=== PATIENT | male | born 1950 | race Caucasian/White ===

== ENCOUNTER → 2018-01-30 14:01 | Outpatient (CLI) | payer MEDICARE, SELFPAY ==
[2018-01-30 14:49] LABS: Add Manual Diff / Slide Review NO; Basophils Percent Auto 1.1 % (0-2); Hematocrit 45.6 % (41-53); Hemoglobin 15.7 g/dL (13.5-17.5); Lymphocytes Percent Auto 26.3 % (25-40); Mean Corpuscular HGB Conc 34.5 % (30-36); Mean Corpuscular Volume 92.7 fL (80-100); Monocytes Percent Auto 6.8 % (3-14); Neutrophils Absolute Auto 5100 /uL (3000-5900); Neutrophils Percent Auto 63.8 % (50-75); Platelet Count 223 X10^3/uL (150-400); Red Blood Cell Count 4.92 X10^6/uL (4.5-5.9); Red Cell Distribution Width 14.9 % (11.6-14.8); White Blood Cell Count 7.9 X10^3/uL (4.5-11.0)
[2018-01-30 15:21] LABS: Alanine Aminotransferase 31 IU/L (21-72); Albumin 4.2 g/dL (3.5-5.0); Albumin Globulin Ratio 1.2 (1.0-2.8); Alkaline Phosphatase 95 U/L (38-126); Aspartate Aminotransferase 30 IU/L (17-59); BUN Creatinine Ratio 17.1 (6-22); Bilirubin Total 0.8 mg/dL (0.2-1.3); Blood Urea Nitrogen 12 mg/dL (9-20); Carbon Dioxide 25 mmol/L (22-32); Chloride 102 mmol/L (98-107); Cholesterol 123 mg/dL (140-199); Estimated Glomerular Filt Rate > 60.0 mL/min (>60); Globulin 3.4 g/dL (1.7-4.1); Glucose 97 mg/dL (80-110); HDL Cholesterol 36 mg/dL (40-60); HEMOLYSIS < 15 (0-50); LDL Cholesterol Calculated 69 mg/dL (<100); Potassium 4.3 mmol/L (3.4-5.1); Sodium 138 mmol/L (137-145); Total Protein 7.6 g/dL (6.3-8.2); Triglycerides 88 mg/dL (35-150)
[2018-01-30 15:51] LABS: Prostate Specific Antigen Scrn 0.846 ng/mL (0.1-4.0)
[2018-01-30 15:52] LABS: TSH w/ Reflex to FT4 1.07 uIU/mL (0.47-4.68)
== END ==
PROVIDERS: PCP Family Medicine; Visit Provider Family Medicine
DX: I10 Essential (primary) hypertension (principal); E78.2 Mixed hyperlipidemia
CPT/HCPCS: 36415; 80053; 80061; 84443; 85025; G0103

== ENCOUNTER 2019-10-22 20:55 | Emergency (ER) | payer MEDICARE, SELFPAY ==
[2019-10-22 20:56] VITALS: BP 211/99; PULSE 76; RESP 20; TEMP 36.6; O2SAT 98
--- NOTE | 2019-10-22 20:57 | DI.CT.S_ITS ---
PROCEDURE: CT HEAD/BRAIN WO CON INDICATIONS: severe headache with balance issues today TECHNIQUE: Noncontrast 4.5 mm thick angled axial sections acquired from the foramen magnum to the vertex, with coronal and sagittal reformats. For radiation dose reduction, the following was used: automated exposure control, adjustment of mA and/or kV according to patient size. COMPARISON: [facility], CT, HEAD WITHOUT CONTRAST, 05/18/2013, 21:47. FINDINGS: Image quality: Excellent. CSF spaces: Basal cisterns are patent. No extra-axial fluid collections. The ventricles are symmetric in size and shape. Brain: No intracranial bleeds or masses. There is cerebral volume loss for age, with resultant ventricular and sulcal prominence. There are periventricular and deep white matter chronic small vessel ischemic changes. There is intracranial internal carotid artery atherosclerosis. Skull and face: Calvarium and visualized facial bones appear intact, without suspicious lesions. Sinuses: Visualized sinuses and mastoids are clear. IMPRESSION: 1. No acute intracranial process. 2. Moderate atrophy and chronic microvascular ischemic changes. Dictated by: Lillie Beckwith M.D. on 10/22/2019 at 21:43 Approved by: Lillie Beckwith M.D. on 10/22/2019 at 21:45
--- NOTE | 2019-10-22 21:32 | ED.HA ---
HPI - Headache General Chief Complaint: Headache Stated Complaint: Headache all day Time Seen by Provider: 10/22/19 20:56 Source: patient Mode of arrival: Ambulatory Limitations: no limitations History of Present Illness HPI Narrative: 69-year-old male daily smoker with history of hypertension presents with a headache over the course of the day in the absence of other symptoms. He denies any blurred vision, trouble with speech or focal neurologic findings. He denies any falls or injuries. He denies fever, chills or neck pain. He denies any chest pain, shortness of breath nor abdominal pain, nausea or vomiting. He does state that he has felt a bit odd ever since he stopped taking his blood pressure medications about 1 month ago. He denies any recent travel nor dietary change. He denies any obvious provocation or palliation of his headache and states it is generalized in nature and was gradual in its onset MD Complaint: headache Onset (ago): hour(s) Onset description: gradual Location: diffuse Severity: moderate Quality: aching Relieving factors: nothing Exacerbating factors: none Associated symptoms: none Related Data Home Medications Medication Instructions Recorded Confirmed aspirin 325 mg PO QDAY #0 12/31/12 02/12/18 Previous Rx's Medication Instructions Recorded albuterol sulfate 90 mcg/actuation 2 puff INHALATION Q6H PRN #8 gram 02/12/18 aerosol inhaler atorvastatin 40 mg tablet 40 mg PO HS #90 tab 01/14/19 citalopram 20 mg tablet 20 mg PO DAILY #30 tab 04/18/19 lisinopril 10 mg PO DAILY #30 tab 10/23/19 metoprolol succinate [Toprol XL] 25 mg PO QDAY #30 tab 10/23/19 Allergies Allergy/AdvReac Type Severity Reaction Status Date / Time No Known Allergies Allergy Uncoded 02/12/18 15:05 Review of Systems Constitutional Constitutional: Denies chills, Denies fatigue, Denies fever(s), Denies frequent falls, Reports headache(s), Denies lethargy and Denies weakness Eyes Eyes: Denies change in vision, Denies eye discharge, Denies irritation and Denies loss of vision ENT Ears, Nose, Mouth, and Throat: Denies change in voice, Denies dizziness, Reports headache(s), Denies neck pain, Denies sore throat and Denies throat swelling Cardiovascular Cardiovascular: Denies chest pain, Denies irregular heart rhythm, Denies lightheadedness, Denies palpitations, Denies dyspnea, Denies dyspnea on exertion and Denies orthopnea Respiratory Respiratory: Denies cough, Denies dyspnea, Denies dyspnea on exertion and Denies wheezing Gastrointestinal Gastrointestinal: Denies abdominal pain, Denies change in bowel habits, Denies diarrhea, Denies nausea and Denies vomiting Genitourinary Genitourinary: Denies hematuria, Denies flank pain, Denies urinary incontinence and Denies urinary urgency Musculoskeletal Musculoskeletal: Denies back pain, Denies muscle weakness, Denies neck pain, Denies numbness and Denies tingling Integumentary/Breasts Skin/Breast: Denies pruritus, Denies erythema, Denies rash and Denies wounds Neurologic Neurologic: Denies behavioral changes, Denies confusion, Denies dizziness, Denies frequent falls, Reports headache(s), Denies loss of vision, Denies numbness, Denies tingling and Denies weakness Psychiatric Psychiatric: Denies anxiety, Denies behavioral changes, Denies confusion, Denies depression, Denies homicidal ideation and Denies suicidal ideation Endocrine Endocrine: Denies fatigue, Denies flushing and Denies palpitations Hematologic/Lymphatic Hematologic/Lymphatic: Denies easy bruising Allergic/Immunologic Allergic/Immunologic: Denies urticaria, Denies throat swelling and Denies wheezing Patient History Medical History Abdominal aortic aneurysm (AAA) (Chronic 09/14/14) Chronic obstructive pulmonary disease (Chronic) Current smoker (Chronic) Depression (Chronic 04/22/14) Essential hypertension (Chronic) Hyperlipidemia (Chronic) Hypertension (Chronic) Mixed hyperlipidemia (Chronic) Pulmonary emphysema (Chronic 09/23/14) Surgical History Abdominal aortic aneurysm (Resolved ~01/16/17) H/O abdominal aortic aneurysm repair (Chronic) Status post appendectomy Status post arthroscopy Social History marital status: Smoking Status: Current every day smoker alcohol intake: current (ON OCCASION ) substance use type: does not use Smoking Status: Current every day smoker alcohol intake frequency: holidays/special occasions only Substance Use Type: does not use Exam Narrative Exam Narrative: GENERAL: [] year old patient appears stated age. Well-nourished, well-developed patient, in mild distress. HEAD: Atraumatic. Normocephalic. EYES: Pupils equal round and reactive. Extraocular motions intact. No scleral icterus. No injection or drainage. ENT: Nose without bleeding, purulent drainage. Throat without erythema, tonsillar hypertrophy or exudate. Airway patent. NECK: Trachea midline. Non tender CARDIOVASCULAR: Regular rate and rhythm without murmurs, gallops, or rubs. RESPIRATORY: Clear to auscultation. Breath sounds equal bilaterally. No wheezes, rales, or rhonchi. GASTROINTESTINAL: Abdomen soft, non-tender, nondistended. EXTREMITIES: No edema or joint tenderness. BACK: Nontender without deformity or crepitance. No flank tenderness. NEURO: AOx3. SKIN: No rash or erythema of visible areas NIH Stroke Scale 1a. LOC: Patient is alert and keenly responsive (0) 1b. LOC Questions: Patient answers both LOC questions accurately (0) 1c. LOC Commands: Patient performs both tasks correctly (0) 2. Best Gaze: Normal (0) 3. Visual: No visual loss (0) 4. Facial palsy: Normal symmetrical movements (0) 5. Motor arm: No drift (0) 6. Motor leg: No drift (0) 7. Limb ataxia: Absent (0) 8. Sensory: Normal (0) 9. Best language: No aphasia; normal (0) 10. Dysarthria: Normal (0) 11. Extinction and inattention: No abnormality (0) NIHSS: 0 Initial Vital Signs Initial Vital Signs: Vital Signs Temperature 98 F 10/22/19 20:56 Pulse Rate 76 10/22/19 20:56 Respiratory Rate 20 10/22/19 20:56 Blood Pressure 211/99 H 10/22/19 20:56 Pulse Oximetry 98 10/22/19 20:56 Course Course Course Narrative: Patient starts feeling a bit better after the Toradol. Patient feels significant relief after blood pressure reduction due to labetalol. Patient has headache over the course of the day with a normal head CT a very reassuring neurologic exam. Stroke considered but thought much less likely given reassuring physical exam and CT findings. Meningitis considered but thought less likely given lack of meningeal findings or suspicion of infection. Return precautions given and questions answered to the apparent satisfaction of patient Orders Ordered: ED Orders 10/22/19 20:57 CT head/brain wo con Stat 10/22/19 21:20 Basic Metabolic Panel Stat Complete Blood Count AUTO DIFF Stat Partial Thromboplastin Time Stat Prothrombin Time INR Stat Discontinued Medications Sodium Chloride (Normal Saline 0.9%) 500 mls @ 1,000 mls/hr IV BOLUS ONE Stop: 10/23/19 00:16 Last Admin: 10/23/19 00:08 Dose: Not Given Documented by: ELISABETH Sodium Chloride (Normal Saline 0.9%) 1,000 mls @ 1,000 mls/hr IV BOLUS ONE Stop: 10/23/19 01:00 Last Infusion: 10/23/19 00:46 Dose: 0 mls/hr Documented by: Admin: 10/23/19 00:04 Dose: 1,000 mls/hr Documented by: ELISABETH Ketorolac Tromethamine (Toradol) 15 mg IV NOW ONE Stop: 10/22/19 22:17 Last Admin: 10/22/19 22:47 Dose: 15 mg Documented by: HÉCTOR Labetalol HCl (Trandate) 10 mg IV NOW ONE Stop: 10/22/19 23:12 Last Admin: 10/22/19 23:16 Dose: 10 mg Documented by: ELISABETH Metoprolol Tartrate (Lopressor) 25 mg PO NOW ONE Stop: 10/22/19 23:48 Last Admin: 10/23/19 00:18 Dose: 25 mg Documented by: SANTOS Vital Signs Vital signs: Vital Signs - 8 hr 10/22/19 20:56 10/22/19 23:11 10/22/19 23:38 Temperature 98 F Pulse Rate 76 72 70 Respiratory Rate 20 18 20 Blood Pressure 211/99 H Blood Pressure [Right Arm] 209/96 H 184/99 H Pulse Oximetry 98 98 10/23/19 01:22 Temperature Pulse Rate 72 Respiratory Rate 18 Blood Pressure 150/70 H Blood Pressure [Right Arm] Pulse Oximetry 98 MDM - Headache Lab Data Result diagrams: 10/22/19 21:20 10/22/19 21:20 Labs: Lab Results 10/22/19 10/22/19 10/22/19 Range/Units 21:20 21:20 21:20 WBC 8.3 (4.5-11.0) X10^3/uL RBC 4.97 (4.5-5.9) X10^6/uL Hgb 15.7 (13.5-17.5) g/dL Hct 45.5 (41-53) % MCV 91.6 (80-100) fL MCH 31.5 (26-34) PG MCHC 34.4 (30-36) % RDW 14.5 (11.6-14.8) % Plt Count 241 (150-400) X10^3/uL Neut % (Auto) 60.6 (50-75) % Lymph % (Auto) 27.6 (25-40) % Woodward % (Auto) 8.2 (3-14) % Eos % (Auto) 3.4 (2-4) % Baso % (Auto) 0.2 (0-2) % Neut # (Auto) 5000 (4096-5394) /uL Lymph # (Auto) 2300 (7561-4609) /uL Woodward # (Auto) 700 (0-900) /uL Eos # (Auto) 300 (0-450) /uL Baso # (Auto) 0 (0-100) /uL PT 11.9 (10.1-12.7) SECONDS INR 1.0 (0.9-1.3) APTT 30 (26.4-36.2) SECONDS Sodium 141 (137-145) mmol/L Potassium 3.6 (3.4-5.1) mmol/L Chloride 102 (98-107) mmol/L Carbon Dioxide 31 (22-32) mmol/L BUN 11 (9-20) mg/dL Creatinine 0.80 (0.66-1.25) mg/dL Estimated GFR > 60.0 (>60) mL/min BUN/Creatinine Ratio 13.8 (6-22) Glucose 96 (80-110) mg/dL Calcium 9.2 (8.4-10.2) mg/dL Discharge Plan Departure Patient Disposition: Home Clinical Impression: Essential hypertension Headache Qualifiers: Headache type: unspecified Headache chronicity pattern: acute headache Intractability: not intractable Qualified Code(s): R51 - Headache Discharge Date/Time: 10/23/19 01:23 Instructions: DI for Headache Activity Restrictions/Additional Instructions: *You have been diagnosed with [hypertension and headache] *What to do: *Take medications as directed: Blood Pressure medications sent to [facility] *Follow up with your primary care provider in 2-3 days, call for an appointment. Let them know you were seen in the Emergency Department and that we ask that you be seen in follow up *Return to ER if you should have any new, worsening or concerning symptoms Prescriptions: Continued lisinopril 10 mg tablet 10 mg PO DAILY Qty: 30 RF: 0 metoprolol succinate [Toprol XL] 25 mg tablet extended release 24 hr 25 mg PO QDAY Qty: 30 RF: 0 No Action aspirin 325 MG tablet 325 mg PO QDAY Qty: 0 RF: 0 atorvastatin [Lipitor] 40 mg tablet 40 mg PO HS Qty: 90 RF: 0 citalopram 20 mg tablet 20 mg PO DAILY Qty: 30 RF: 0 albuterol sulfate 90 mcg/actuation HFA aerosol inhaler 2 puff INHALATION Q6H PRN (Reason: shortness of breath) Qty: 8 RF: 0 Referrals: Tobi Lora MD [Primary Care Provider] -
[2019-10-22 21:43] LABS: Add Manual Diff / Slide Review NO; Basophils Absolute Auto 0 /uL (0-100); Basophils Percent Auto 0.2 % (0-2); Eosinophils Absolute Auto 300 /uL (0-450); Eosinophils Percent Auto 3.4 % (2-4); Hematocrit 45.5 % (41-53); Hemoglobin 15.7 g/dL (13.5-17.5); Lymphocytes Absolute Auto 2300 /uL (1100-4500); Lymphocytes Percent Auto 27.6 % (25-40); Mean Corpuscular HGB Conc 34.4 % (30-36); Mean Corpuscular Hemoglobin 31.5 PG (26-34); Mean Corpuscular Volume 91.6 fL (80-100); Monocytes Absolute Auto 700 /uL (0-900); Monocytes Percent Auto 8.2 % (3-14); Neutrophils Absolute Auto 5000 /uL (1500-7000); Neutrophils Percent Auto 60.6 % (50-75); Platelet Count 241 X10^3/uL (150-400); Red Blood Cell Count 4.97 X10^6/uL (4.5-5.9); Red Cell Distribution Width 14.5 % (11.6-14.8); White Blood Cell Count 8.3 X10^3/uL (4.5-11.0)
[2019-10-22 21:49] LABS: Prothrombin Time 11.9 SECONDS (10.1-12.7)
[2019-10-22 21:51] LABS: BUN Creatinine Ratio 13.8 (6-22); Blood Urea Nitrogen 11 mg/dL (9-20); Calcium 9.2 mg/dL (8.4-10.2); Carbon Dioxide 31 mmol/L (22-32); Chloride 102 mmol/L (98-107); Estimated Glomerular Filt Rate > 60.0 mL/min (>60); Glucose 96 mg/dL (80-110); HEMOLYSIS 24 (0-50); Potassium 3.6 mmol/L (3.4-5.1); Sodium 141 mmol/L (137-145)
[2019-10-22 21:52] LABS: PTT Partial Thromboplastin Tim 30 SECONDS (26.4-36.2)
[2019-10-22] MEDS: KETOROLAC 60 MG/2 ML VIAL 15 MG IV (22:47)
[2019-10-22 23:11] VITALS: BP 209/96; PULSE 72; RESP 18; O2SAT 98
[2019-10-22] MEDS: LABETALOL 20 MG/4 ML SYRINGE 10 MG IV (23:16)
[2019-10-22 23:38] VITALS: BP 184/99; PULSE 70; RESP 20
[2019-10-23] MEDS: SODIUM CHLORIDE 0.9% 1,000 ML 1000 ML IV (00:04)
[2019-10-23] MEDS: METOPROLOL IR 25 MG TABLET PO (00:18)
[2019-10-23 01:22] VITALS: BP 150/70; PULSE 72; RESP 18; O2SAT 98
--- NOTE | 2019-10-23 01:23 | PC.NURSE ---
Stated head ache almost gone.
== END 2019-10-23 01:23 | disposition home or self-care (01) ==
PROVIDERS: Emergency Provider Emergency Medicine; Family Provider Family Medicine; PCP Family Medicine
DX: I10 Essential (primary) hypertension (principal); R51 Headache
CPT/HCPCS: 36415; 70450; 80048; 85025; 85610; 85730; 96361; 96374; 96375; 99284; J1885

== ENCOUNTER → 2020-07-29 10:38 | Outpatient (CLI) | payer MEDICARE, SELFPAY ==
--- NOTE | 2020-07-29 10:40 | DI.RAD.S_ITS ---
PROCEDURE: XR LUMBAR SPINE 2-3V INDICATIONS: sciatic nerve pain TECHNIQUE: 3 views of the lumbar spine were acquired. COMPARISON: None. FINDINGS: Bones: No fracture. Multilevel degenerative endplate sclerosis and spurring. Diffuse facet arthropathy. Trace retrolisthesis of L2 on L3. Mild bilateral hip joint degeneration. Minimal diffuse disc space narrowing. Soft tissues: Aorto bi-iliac stent graft incidentally noted. IMPRESSION: Multilevel [id number] lumbar spondylosis and facet arthropathy Grade 1 retrolisthesis of L2 on L3. Dictated by: Rajat Barron M.D. on 07/29/2020 at 12:56 Approved by: Rajat Barron M.D. on 07/29/2020 at 12:58
== END ==
PROVIDERS: Family Provider Family Medicine; PCP Family Medicine; Referring Provider Family Medicine; Visit Provider Family Medicine
DX: M54.30 Sciatica, unspecified side (principal); M47.816 Spondylosis without myelopathy or radiculopathy, lumbar region; M16.0 Bilateral primary osteoarthritis of hip; M43.16 Spondylolisthesis, lumbar region
CPT/HCPCS: 72100

== ENCOUNTER → 2022-09-07 08:19 | Outpatient (CLI) | payer MEDICARE, SELFPAY ==
[2022-09-07 09:59] LABS: Add Manual Diff / Slide Review NO; Basophils Absolute Auto 0 /uL (0-100); Basophils Percent Auto 0.6 % (0-2); Eosinophils Absolute Auto 200 /uL (0-450); Eosinophils Percent Auto 2.7 % (2-4); Hematocrit 43.5 % (41-53); Hemoglobin 14.6 g/dL (13.5-17.5); Lymphocytes Absolute Auto 1500 /uL (1100-4500); Mean Corpuscular HGB Conc 33.5 % (30-36); Mean Corpuscular Hemoglobin 30.9 PG (26-34); Mean Corpuscular Volume 92.1 fL (80-100); Monocytes Absolute Auto 600 /uL (0-900); Monocytes Percent Auto 7.9 % (3-14); Neutrophils Absolute Auto 4700 /uL (1500-7000); Neutrophils Percent Auto 66.8 % (50-75); Platelet Count 256 X10^3/uL (150-400); Red Blood Cell Count 4.72 X10^6/uL (4.5-5.9)
[2022-09-07 10:29] LABS: Alanine Aminotransferase 26 IU/L (<50); Alkaline Phosphatase 74 U/L (38-126); Aspartate Aminotransferase 26 IU/L (17-59); BUN Creatinine Ratio 17.3 (6-22); Bilirubin Total 0.5 mg/dL (0.2-1.3); Blood Urea Nitrogen 13 mg/dL (9-20); Calcium 9.1 mg/dL (8.4-10.2); Carbon Dioxide 25 mmol/L (22-32); Chloride 105 mmol/L (98-107); Cholesterol 212 mg/dL (140-199); Estimated Glomerular Filt Rate > 60 mL/min (>60); Glucose 117 mg/dL (80-110); HDL Cholesterol 38 mg/dL (40-60); HEMOLYSIS < 15 (0-50); LDL Cholesterol Calculated 145 mg/dL (<100); Potassium 4.6 mmol/L (3.4-5.1); Sodium 139 mmol/L (137-145); Total Protein 7.5 g/dL (6.3-8.2); Triglycerides 146 mg/dL (35-150)
[2022-09-07 10:49] LABS: Prostate Specific Antigen Scrn 0.813 ng/mL (0.1-4.0)
[2022-09-07 10:52] LABS: TSH w/ Reflex to FT4 1.26 uIU/mL (0.47-4.68)
[2022-09-08 13:37] LABS: Fecal Immunochemical Test Negative (Negative)
[2022-09-08 17:04] LABS: Albumin 4.3 g/dL (3.5-5.0); Albumin Globulin Ratio 1.3 (1.0-2.8); Globulin 3.2 g/dL (1.7-4.1)
== END ==
PROVIDERS: Family Provider Family Medicine; PCP Family Medicine; Referring Provider Physician Assistant; Visit Provider Physician Assistant
DX: E78.2 Mixed hyperlipidemia (principal); Z12.5 Encounter for screening for malignant neoplasm of prostate; I10 Essential (primary) hypertension; Z12.11 Encounter for screening for malignant neoplasm of colon
CPT/HCPCS: 36415; 80053; 80061; 82274; 84443; 85025; G0103

== ENCOUNTER → 2022-09-08 11:56 | Outpatient (CLI) | payer MEDICARE, SELFPAY ==
--- NOTE | 2022-09-08 11:57 | DI.CT.S_ITS ---
PROCEDURE: CT LUNG LOW DOSE SCREENING INDICATIONS: >30 year pack hx; current smoker TECHNIQUE: Noncontrast 2.0-2.5 mm thick sections acquired from the pulmonary apices to the posterior costophrenic angles. 7 mm thick axial MIP, and 5 mm coronal and sagittal reformats were then acquired. A low radiation dose technique was utilized. COMPARISON: [facility], CT, PE STUDY (CTA CHEST), 12/26/2012, 21:10. FINDINGS: Image quality: Diagnostic, given the low radiation dose technique. Lungs and pleura: Moderate emphysematous change. Right lower lobe pulmonary nodule measuring 0.5 cm, (3/180). No acute airspace opacity. Central airways are clear. No pleural effusion. No pneumothorax. Mediastinum: Heart size is normal. Mild coronary artery calcifications. No pericardial effusion. No mediastinal adenopathy by size criteria. Thoracic aorta and central pulmonary arteries are normal in size. Esophagus is normal in caliber. No hiatal hernia. Bones and chest wall: No suspicious bony lesions. No vertebral body compression fractures. No axillary or supraclavicular adenopathy by size criteria. Thyroid gland is unremarkable. Abdomen: Visualized upper abdomen solid organs and bowel loops appear normal in the absence of contrast. Low-density left renal cyst. IMPRESSION: 1. Right lower lobe pulmonary nodule measuring 0.5 cm. LUNG-RADS 2; recommend follow-up lung cancer screening chest CT in 12 months. 2. Moderate emphysematous change. Dictated by: Eladio Tena M.D. on 09/08/2022 at 15:16 Approved by: Eladio Tena M.D. on 09/08/2022 at 15:22
== END ==
PROVIDERS: Family Provider Family Medicine; PCP Family Medicine; Referring Provider Physician Assistant; Visit Provider Physician Assistant
DX: Z13.83 Encounter for screening for respiratory disorder NEC (principal); R91.1 Solitary pulmonary nodule; I25.10 Atherosclerotic heart disease of native coronary artery without angina pectoris; F17.210 Nicotine dependence, cigarettes, uncomplicated
CPT/HCPCS: 71250

== ENCOUNTER → 2022-10-13 15:29 | Outpatient (CLI) | payer MEDICARE, SELFPAY ==
[2022-10-13 15:33] LABS: Appearance Urine UA CLEAR; Bilirubin Urine UA NEGATIVE (NEGATIVE); Color Urine UA YELLOW; Glucose Urine UA NEGATIVE (Negative); Ketones Urine UA NEGATIVE (NEGATIVE); Leukocyte Esterase Urine UA NEGATIVE (NEGATIVE); Nitrite Urine UA NEGATIVE (Negative); Occult Blood Urine UA NEGATIVE (Negative); Protein Urine UA NEGATIVE (Negative); Specific Gravity Urine UA >=1.030 (1.000-1.035); Urobilinogen Urine UA 0.2 E.U./dL (0.2); pH Urine UA 5.5 (4.5-8.0)
[2022-10-13 15:50] LABS: Bacteria Urine None Seen; Culture Indicated Urine Cult Not Indicated; RBC Urine None Seen (0-5/HPF); Squamous Epithelial Cell Urine 0-1 /HPF (0-5/HPF); WBC Urine 0-1/HPF (0-5/HPF)
== END ==
PROVIDERS: Family Provider Family Medicine; PCP Family Medicine; Visit Provider Urology
DX: N40.1 Benign prostatic hyperplasia with lower urinary tract symptoms (principal); R35.1 Nocturia; N32.0 Bladder-neck obstruction; R39.9 Unspecified symptoms and signs involving the genitourinary system; R39.11 Hesitancy of micturition; N52.9 Male erectile dysfunction, unspecified; F17.210 Nicotine dependence, cigarettes, uncomplicated; Z98.890 Other specified postprocedural states
CPT/HCPCS: 51798; 81001; 99214

== ENCOUNTER → 2023-10-25 14:33 | Outpatient (CLI) | payer MEDICARE, SELFPAY ==
--- NOTE | 2023-10-25 14:35 | DI.CT.S_ITS ---
PROCEDURE: CT CHEST WO CON INDICATIONS: Pulmonary nodule - 12 mo follow up TECHNIQUE: Noncontrast 5 mm thick sections acquired from the pulmonary apices to the posterior costophrenic angles. 1 mm lung window, 5 mm thick coronal and sagittal and 7 mm axial MIP reformats were then acquired. For radiation dose reduction, the following was used: automated exposure control, adjustment of mA and/or kV according to patient size. COMPARISON: [facility], CT, CT LUNG LOW DOSE SCREENING, 09/08/2022, 12:04. FINDINGS: Image quality: Diagnostic. Lower Neck: No enlarged lymph nodes. Thyroid: No thyroid nodules which require sonographic follow up, per consensus guidelines. Axillae: No enlarged lymph nodes. Chest Wall: Unremarkable. Bones: Mild degenerative changes of the spine.. Lungs and Pleura: No pneumothorax or pleural effusions. Moderate emphysematous changes. Subpleural nodule measuring 5 mm within the right lower lobe posteriorly (3/112). Stable right lower lobe nodular opacity measuring approximately 7 mm (remeasured on prior, series 3, image 178). Scattered additional smaller pulmonary nodules are stable compared to prior. Heart: Heart size is normal. Mild coronary artery calcifications. No pericardial effusion. Thoracic Vessels: The aorta and pulmonary arteries demonstrate normal size. Mild atherosclerotic vascular calcifications. Mediastinum and Jacquie: No enlarged lymph nodes. Esophagus: No wall thickening. No hiatal hernia. Upper Abdomen: Visualized upper abdomen solid organs and bowel loops appear normal. Left renal simple appearing cyst is partially visualized. IMPRESSION: Scattered pulmonary nodules are stable compared to prior measuring up to 7 mm. Recommend 1 year follow-up chest CT to confirm stability. Other findings are stable compared to prior exam as described above. Dictated by: Nasir Calles M.D. on 10/25/2023 at 16:53 Approved by: Nasir Calles M.D. on 10/25/2023 at 17:07
== END ==
PROVIDERS: Family Provider Family Medicine; PCP Family Medicine; Referring Provider Physician Assistant; Visit Provider Physician Assistant
DX: R91.8 Other nonspecific abnormal finding of lung field (principal); I25.10 Atherosclerotic heart disease of native coronary artery without angina pectoris; I70.0 Atherosclerosis of aorta; N28.1 Cyst of kidney, acquired
CPT/HCPCS: 71250

== ENCOUNTER → 2023-11-30 07:35 | Outpatient (CLI) | payer MEDICARE, SELFPAY ==
[2023-11-30 08:34] LABS: Alanine Aminotransferase 24 IU/L (<50); Albumin Globulin Ratio 1.3 (1.0-2.8); Alkaline Phosphatase 68 U/L (38-126); Aspartate Aminotransferase 25 IU/L (17-59); BUN Creatinine Ratio 23.1 (6-22); Bilirubin Total 0.4 mg/dL (0.2-1.3); Blood Urea Nitrogen 18 mg/dL (9-20); Calcium 9.1 mg/dL (8.4-10.2); Carbon Dioxide 27 mmol/L (22-32); Chloride 108 mmol/L (98-107); Cholesterol 199 mg/dL (140-199); Estimated Glomerular Filt Rate > 60 mL/min (>60); Globulin 3.1 g/dL (1.7-4.1); Glucose 125 mg/dL (80-110); HDL Cholesterol 42 mg/dL (40-60); HEMOLYSIS < 15 (0-50); LDL Cholesterol Calculated 140 mg/dL (<100); Potassium 4.3 mmol/L (3.4-5.1); Sodium 141 mmol/L (137-145); Total Protein 7.1 g/dL (6.3-8.2); Triglycerides 85 mg/dL (35-150)
[2023-11-30 09:20] LABS: TSH w/ Reflex to FT4 1.55 uIU/mL (0.47-4.68)
== END ==
PROVIDERS: Family Provider Family Medicine; PCP Family Medicine; Referring Provider Family Medicine; Visit Provider Family Medicine
DX: I10 Essential (primary) hypertension (principal); E78.2 Mixed hyperlipidemia; F32.9 Major depressive disorder, single episode, unspecified; F17.200 Nicotine dependence, unspecified, uncomplicated
CPT/HCPCS: 36415; 80053; 80061; 84443

== ENCOUNTER → 2024-10-01 06:42 | Outpatient (CLI) | payer MEDICARE, SELFPAY ==
--- NOTE | 2024-10-01 06:45 | DI.CT.S_ITS ---
PROCEDURE: CT CHEST WO CON INDICATIONS: One year f/u on pulmonary nodules TECHNIQUE: Noncontrast 5 mm thick sections acquired from the pulmonary apices to the posterior costophrenic angles. 1 mm lung window, 5 mm thick coronal and sagittal and 7 mm axial MIP reformats were then acquired. For radiation dose reduction, the following was used: automated exposure control, adjustment of mA and/or kV according to patient size. COMPARISON: [facility], CT, CT LUNG LOW DOSE SCREENING, 09/08/2022, 12:04. [facility], CT, CT CHEST WO CON, 10/25/2023, 14:49. FINDINGS: Image quality: Diagnostic. Lower Neck: No enlarged lymph nodes. Thyroid: No thyroid nodules which require sonographic follow up, per consensus guidelines. Axillae: No enlarged lymph nodes. Chest Wall: Unremarkable. Bones: No suspicious osseous lesion. Lungs and Pleura: No pneumothorax or pleural effusions. Central airways are clear. Moderate emphysematous change. A few small pulmonary nodules. For example: -Right middle lobe 0.3 cm, (3/187), unchanged. -Right lower lobe superior segment 0.5 cm, (3/134), unchanged. -Right lower lobe 0.5 cm, (3/208), previously 0.7 cm. Heart: Heart size is normal. Moderate emphysematous change. No pericardial effusion. Thoracic Vessels: The aorta and pulmonary arteries demonstrate normal size. Mediastinum and Jacquie: No enlarged lymph nodes. Esophagus: No wall thickening. No hiatal hernia. Upper Abdomen: Visualized upper abdomen solid organs and bowel loops appear normal. IMPRESSION: 1. No new or enlarging pulmonary nodules. A few small pulmonary nodules measuring up to 0.5 cm. Recommend lung cancer screening chest CT in 12 months. 2. No adenopathy. Dictated by: Eladio Tena M.D. on 10/01/2024 at 14:01 Approved by: Eladio Tena M.D. on 10/01/2024 at 14:11
== END ==
LOC: CT 06:44
PROVIDERS: Family Provider Family Medicine; PCP Family Medicine; Referring Provider Physician Assistant; Visit Provider Physician Assistant
DX: R91.8 Other nonspecific abnormal finding of lung field (principal)
CPT/HCPCS: 71250

== ENCOUNTER → 2024-11-28 07:22 | Outpatient (CLI) | payer MEDICARE, SELFPAY ==
[2024-11-28 07:49] LABS: Add Manual Diff / Slide Review NO; Basophils Absolute Auto 100 /uL (0-100); Basophils Percent Auto 1.8 % (0-2); Eosinophils Absolute Auto 200 /uL (0-450); Eosinophils Percent Auto 3.2 % (2-4); Hematocrit 43.4 % (41-53); Hemoglobin 14.8 g/dL (13.5-17.5); Lymphocytes Absolute Auto 1400 /uL (1100-4500); Lymphocytes Percent Auto 20.4 % (25-40); Mean Corpuscular HGB Conc 34.1 % (30-36); Mean Corpuscular Hemoglobin 31.2 PG (26-34); Mean Corpuscular Volume 91.5 fL (80-100); Monocytes Absolute Auto 500 /uL (0-900); Monocytes Percent Auto 6.8 % (3-14); Neutrophils Absolute Auto 4800 /uL (1500-7000); Neutrophils Percent Auto 67.8 % (50-75); Platelet Count 247 X10^3/uL (150-400); Red Blood Cell Count 4.74 X10^6/uL (4.5-5.9); Red Cell Distribution Width 14.8 % (11.6-14.8); White Blood Cell Count 7.1 X10^3/uL (4.5-11.0)
[2024-11-28 08:04] LABS: Hemoglobin A1C% w Est Avg Glu 6.4 % (4.0-6.0)
[2024-11-28 08:13] LABS: Alanine Aminotransferase 35 IU/L (<50); Albumin 4.3 g/dL (3.5-5.0); Albumin Globulin Ratio 1.6 (1.0-2.8); Alkaline Phosphatase 89 U/L (38-126); Aspartate Aminotransferase 30 IU/L (17-59); Bilirubin Total 0.7 mg/dL (0.2-1.3); Blood Urea Nitrogen 17 mg/dL (9-20); Calcium 9.3 mg/dL (8.4-10.2); Carbon Dioxide 24 mmol/L (22-32); Chloride 105 mmol/L (98-107); Cholesterol 137 mg/dL (140-199); Estimated Glomerular Filt Rate > 60 mL/min (>60); Globulin 2.7 g/dL (1.7-4.1); Glucose 152 mg/dL (80-110); HDL Cholesterol 37 mg/dL (40-60); HEMOLYSIS < 15 (0-50); LDL Cholesterol Calculated 83 mg/dL (<100); Potassium 4.5 mmol/L (3.4-5.1); Sodium 139 mmol/L (137-145); Triglycerides 86 mg/dL (35-150)
[2024-11-28 08:41] LABS: TSH w/ Reflex to FT4 1.18 uIU/mL (0.47-4.68)
[2024-11-28 08:42] LABS: Prostate Specific Antigen Scrn 1.06 ng/mL (0.1-4.0)
== END ==
PROVIDERS: Family Provider Family Medicine; PCP Family Medicine; Referring Provider Family Medicine; Visit Provider Family Medicine
DX: I10 Essential (primary) hypertension (principal); Z12.5 Encounter for screening for malignant neoplasm of prostate; E78.2 Mixed hyperlipidemia; Z98.890 Other specified postprocedural states; N40.0 Benign prostatic hyperplasia without lower urinary tract symptoms
CPT/HCPCS: 36415; 80053; 80061; 83036; 84443; 85025; G0103

== ENCOUNTER → 2024-12-05 10:42 | Outpatient (CLI) | payer MEDICARE, SELFPAY ==
--- NOTE | 2024-12-05 10:43 | DI.RAD.S_ITS ---
PROCEDURE: XR LUMBAR SPINE MIN 4V INDICATIONS: lower back pain TECHNIQUE: 5 views of the lumbar spine acquired, including flexion and extension views. COMPARISON: [facility], CR, XR LUMBAR SPINE 2-3V, 07/29/2020, 10:58. FINDINGS: Lumbar spine curvature and alignment: Normal. Bones: There are no osseous abnormalities. Disc spaces: Normal in height without significant degeneration. There is, however, moderate L3-4 through L5-S1 degenerative facet disease Soft tissues: Aorta bi-iliac endograft remains in stable position without evidence of strut breakage or other complication IMPRESSION: Moderate L3-4 through L5-S1 degenerative facet disease-stable Dictated by: Tay Card M.D. on 12/08/2024 at 8:48 Approved by: Tay Card M.D. on 12/08/2024 at 8:49
== END ==
PROVIDERS: Family Provider Family Medicine; PCP Family Medicine; Referring Provider Family Medicine; Visit Provider Family Medicine
DX: M54.9 Dorsalgia, unspecified (principal); M47.816 Spondylosis without myelopathy or radiculopathy, lumbar region; M47.817 Spondylosis without myelopathy or radiculopathy, lumbosacral region
CPT/HCPCS: 72110

== ENCOUNTER 2025-01-22 07:30 | Outpatient (RCR) | payer MEDICARE, SELFPAY ==
--- NOTE | 2025-01-20 17:14 | PT.OIE ---
Addendum entered and electronically signed by Shabnam Strong PT 01/21/25 11:07: PT direct supervision and direction to student PT Nydia Garner throughout session Original Note: Current Diagnoses Dorsalgia, unspecified (01/20/25) Past Medical History (Last Updated 12/03/23 @ 09:29 by Tobi Lora MD) Abdominal aortic aneurysm (AAA) (09/14/14) Benign prostatic hyperplasia Bladder outlet obstruction Chronic obstructive pulmonary disease Current smoker Depression (04/22/14) Essential hypertension Hyperlipidemia Hypertension Lower urinary tract symptoms Mixed hyperlipidemia Pulmonary emphysema (09/23/14) Past Surgical History (Last Reviewed 10/23/19 @ 04:22 by Enrique Jesus DO) Abdominal aortic aneurysm (~01/16/17) H/O abdominal aortic aneurysm repair Status post appendectomy Status post arthroscopy Visit Care Team Role Provider Type Tobi Lora MD Attending Provider Physician Family Provider Primary Care Provider Referring Provider Specialty: [facility] Address: [address] [place] [address], [address], [facility] Email: [email or web address] Physical Therapy Initial Evaluation PT-OP-A Visit Information Start: 01/20/25 12:29 Freq: Status: Active Protocol: Document 01/20/25 12:30 GG (Rec: 01/20/25 13:44 GG Laptop) Out-Patient Physical Therapy Visit Information Visit Information Visit Type Initial Evaluation Visit Start Time 11:33 Visit Stop Time 12:18 Visit Number 1 Number of SET BUILDER Visits 0 PT-OP-B Current Condition Start: 01/20/25 12:29 Freq: Status: Active Protocol: Document 01/20/25 12:30 GG (Rec: 01/20/25 13:44 GG Laptop) Current Condition History of Current Condition Onset Date 30+ years ago Current Complaints back pain w/ occ radiating and balance History of Current Pt reports long hx of back pain and occ sciatic Condition symptoms that can radiate down into the back of the leg 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 Denies numbness/tingling. 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 He also reports difficulty w/ balance and 3 falls within the past year, the most recent fall occurring last month where he turned too fast and caught his feet leading to a fall on carpet. Notes LOB occurs often but he is usually able to catch himself by grabbing onto furniture or counters. The other two falls were in the kitchen and he ended up with bruises on his hips. Notes no significant injury following. He has been sleeping in his recliner and notes that he wakes up every few hours, but not d/t back pain. No changes to bowel/bladder. Has not tried heat/ice/medications for relief. Started going to chiropractor 3 weeks ago and notes that he occ has slight relief, but it is dependent on what they do during the appt. Treatment Goals Patient/Caregiver walk further, ascend/descend stairs easier, vacuum Goals longer, and stand longer w/o pain increasing, improve balance and LE strength PT-OP-C Subjective Start: 01/20/25 12:29 Freq: Status: Active Protocol: Document 01/20/25 12:30 GG (Rec: 01/20/25 13:44 GG Laptop) Patient Questionnaires Oswestry Low Back Index Oswestry Score 38% PT-OP-D Balance Start: 01/20/25 12:29 Freq: Status: Active Protocol: Document 01/20/25 12:30 GG (Rec: 01/20/25 13:44 GG Laptop) Balance Tests Single Limb Standing Single Limb- Right able to lift leg Single Limb- Left able to lift leg PT-OP-E Functional Tests Start: 01/20/25 12:29 Freq: Status: Active Protocol: Document 01/20/25 12:30 GG (Rec: 01/20/25 13:44 GG Laptop) Functional Tests Dynamic Gait Index (DGI) Score 08/12 PT-OP-G Mobility & Gait Start: 01/20/25 12:29 Freq: Status: Active Protocol: Document 01/20/25 12:30 GG (Rec: 01/20/25 13:44 GG Laptop) OP Gait Assessment Comments Gait Comments R trendelenberg PT-OP-K Range of Motion Start: 01/20/25 12:29 Freq: Status: Active Protocol: Document 01/20/25 12:30 GG (Rec: 01/20/25 13:44 GG Laptop) Lumbar Spine Range of Motion Lumbar Spine Active Percentage Flexion 15 Extension 40 Rotation Left 20 Rotation Right 20 Lateral Flexion Left 25 Lateral Flexion 25 Right Comments minimal lumbar flexion observed; mild fwd flexion w/ SB testing PT-OP-L Special Tests Start: 01/20/25 12:29 Freq: Status: Active Protocol: Document 01/20/25 12:30 GG (Rec: 01/20/25 13:44 GG Laptop) Special Tests Neural Special Tests- Lower Body slump Test Results pos Comments pt noted inc. symptoms into hamstring/calves w/ addition of passive DF PT-OP-M Strength Start: 01/20/25 12:29 Freq: Status: Active Protocol: Document 01/20/25 12:30 GG (Rec: 01/20/25 13:44 GG Laptop) Hip Strength Hip Manual Muscle Testing Right Flexion (L2) 4 Good Abduction 3+ Fair+ External Rotation 4- Good- Internal Rotation 4 Good Left Flexion (L2) 4 Good Abduction 4 Good External Rotation 4 Good Internal Rotation 4 Good Knee Strength Knee Manual Muscle Testing Right Flexion (S2) 4+ Good+ Extension (L3) 4+ Good+ Left Flexion (S2) 4+ Good+ Extension (L3) 4+ Good+ Ankle/Foot Strength Ankle and Foot Manual Muscle Testing Right Dorsiflexion (L4) 4+ Good+ Left Dorsiflexion (L4) 4+ Good+ PT-OP-Q Treatments Start: 01/20/25 12:29 Freq: Status: Active Protocol: Document 01/20/25 12:30 GG (Rec: 01/20/25 13:44 GG Laptop) Therapeutic Exercises Standing Exercises sit to stand Reps/Minutes 5x Comments cue to avoid looking down march Side bilateral Reps/Minutes 10x Comments UE support hip ABD Side bilateral Reps/Minutes 10x Comments UE support Other Exercises testing Other Exercise Name DGI PT-OP-T Assessment and Plan Start: 01/20/25 12:29 Freq: Status: Active Protocol: Document 01/20/25 12:30 GG (Rec: 01/20/25 13:44 GG Laptop) Physical Therapy Assessment Rehab Potential Rehabilitation Good Potential Evaluation Complexity Number of Personal 3 or More Factors/ Comorbidities Number of Body 3 Systems Impaired Clinical Evolving Presentation at Evaluation Impairments Impairments Activity Tolerance,Balance,Coordination,Functional Activities,Functional Mobility,Gait,Pain,Posture,ROM, Strength Goals balance Short Term Goal (STG Pt will be able to SLS for at least 2 sec unassisted to ) demonstrated improved balance for decreased fall risk. STG Duration 02/20/25 Medical Secretary Receptionist Goal (LTG) Pt will be able to SLS for at least 5 sec unassisted to demonstrated improved balance for decreased fall risk. LTG Duration 03/17/25 strength Short Term Goal (STG Pt will be able to walk >.25 mile before requiring rest ) d/t symptoms to show improved tolerance to upright activities. STG Duration 02/20/25 Penitentiary Goal (LTG) Pt will score at least a 4+/5 on tested BLE MMTs for improved strength and ability to perform ADLs. LTG Duration 03/17/25 DGI Impairment 12/24 Short Term Goal (STG Pt will score at least a 15 on DGI to show improved ) balance during ambulation. STG Duration 02/20/25 Medical Secretary Receptionist Goal (LTG) Pt will score at least a 19 on DGI to show improved balance during ambulation. LTG Duration 03/17/25 [place] Impairment 38% Short Term Goal (STG Pt will score at least a 20% on [place] to show improved ) function and ability to perform ADLs w/o interference from pain. STG Duration 02/20/25 Medical Secretary Receptionist Goal (LTG) Pt will score at least a 15% on [place] to show improved function and ability to perform ADLs w/o interference from pain. LTG Duration 03/17/25 Assessment Summary Assessment Don is a 74 y/o with chronic low back pain and occ radiating pain down the back of the legs. Also presents w/ deficits in LE strength that could be contributing to falls and frequent LOB during ambulation. Pt will benefit from skilled PT to improve strength and balance for reduced fall risk and increased ability to walk and overall improved tolerance to activity to better perform ADLs. Physical Therapy Plan Frequency and Duration Frequency of 2x/Week Treatment Duration of 8 treatment (weeks) Plan of Care Start 01/20/25 Date Plan of Care End 03/17/25 Date Therapeutic Interventions Therapeutic Balance Training,Coordination Training,Gait Training, Interventions Home Exercise Program,Joint Mobilizations,Manual Therapy,Neuromuscular Re-education,Patient/Caregiver Education,Self-Care/Home Management,Soft Tissue Mobilization,Therapeutic Activities,Therapeutic Exercises Modalities Cold Pack/Ice Massage,Electric Stimulation,Hot Packs, Infrared Therapy,Traction- Mechanical,Ultrasound Next Visit Focus/Plan Next Note Type Treatment Note Next Visit Plan static/dynamic DL/staggered stance balance (CGA), manual therapy to low back (assess spine vs. muscular), LE exercises: squat taps, toe raises, core, lower trunk rotation
--- NOTE | 2025-01-20 18:04 | PT.OPPOC ---
Physical, Occupational & Speech Therapy At [facility] Current Diagnoses Dorsalgia, unspecified (01/20/25) Visit Care Team Role Provider Type Tobi Lora MD Attending Provider Physician Family Provider Primary Care Provider Referring Provider Specialty: Family Practice Address: [address] [place] [address], [address], [facility] Email: [email or web address] Plan Of Care PT-OP-B Current Condition Start: 01/20/25 12:29 Freq: Status: Active Protocol: Document 01/20/25 12:30 GG (Rec: 01/20/25 13:44 GG Laptop) Current Condition History of Current Condition Onset Date 30+ years ago Current Complaints back pain w/ occ radiating and balance History of Current Pt reports long hx of back pain and occ sciatic Condition symptoms that can radiate down into the back of the leg 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 Denies numbness/tingling. 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 He also reports difficulty w/ balance and 3 falls within the past year, the most recent fall occurring last month where he turned too fast and caught his feet leading to a fall on carpet. Notes LOB occurs often but he is usually able to catch himself by grabbing onto furniture or counters. The other two falls were in the kitchen and he ended up with bruises on his hips. Notes no significant injury following. He has been sleeping in his recliner and notes that he wakes up every few hours, but not d/t back pain. No changes to bowel/bladder. Has not tried heat/ice/medications for relief. Started going to chiropractor 3 weeks ago and notes that he occ has slight relief, but it is dependent on what they do during the appt. Treatment Goals Patient/Caregiver walk further, ascend/descend stairs easier, vacuum Goals longer, and stand longer w/o pain increasing, improve balance and LE strength PT-OP-T Assessment and Plan Start: 01/20/25 12:29 Freq: Status: Active Protocol: Document 01/20/25 12:30 GG (Rec: 01/20/25 13:44 GG Laptop) Physical Therapy Assessment Rehab Potential Rehabilitation Good Potential Evaluation Complexity Number of Personal 3 or More Factors/ Comorbidities Number of Body 3 Systems Impaired Clinical Evolving Presentation at Evaluation Impairments Impairments Activity Tolerance,Balance,Coordination,Functional Activities,Functional Mobility,Gait,Pain,Posture,ROM, Strength Goals balance Short Term Goal (STG Pt will be able to SLS for at least 2 sec unassisted to ) demonstrated improved balance for decreased fall risk. STG Duration 02/20/25 Alf Goal (LTG) Pt will be able to SLS for at least 5 sec unassisted to demonstrated improved balance for decreased fall risk. LTG Duration 03/17/25 strength Short Term Goal (STG Pt will be able to walk >.25 mile before requiring rest ) d/t symptoms to show improved tolerance to upright activities. STG Duration 02/20/25 Alf Goal (LTG) Pt will score at least a 4+/5 on tested BLE MMTs for improved strength and ability to perform ADLs. LTG Duration 03/17/25 DGI Impairment 12/24 Short Term Goal (STG Pt will score at least a 15 on DGI to show improved ) balance during ambulation. STG Duration 02/20/25 Alf Goal (LTG) Pt will score at least a 19 on DGI to show improved balance during ambulation. LTG Duration 03/17/25 [place] Impairment 38% Short Term Goal (STG Pt will score at least a 20% on [place] to show improved ) function and ability to perform ADLs w/o interference from pain. STG Duration 02/20/25 Alf Goal (LTG) Pt will score at least a 15% on [place] to show improved function and ability to perform ADLs w/o interference from pain. LTG Duration 03/17/25 Assessment Summary Assessment Don is a 74 y/o with chronic low back pain and occ radiating pain down the back of the legs. Also presents w/ deficits in LE strength that could be contributing to falls and frequent LOB during ambulation. Pt will benefit from skilled PT to improve strength and balance for reduced fall risk and increased ability to walk and overall improved tolerance to activity to better perform ADLs. Physical Therapy Plan Frequency and Duration Frequency of 2x/Week Treatment Duration of 8 treatment (weeks) Plan of Care Start 01/20/25 Date Plan of Care End 03/17/25 Date Therapeutic Interventions Therapeutic Balance Training,Coordination Training,Gait Training, Interventions Home Exercise Program,Joint Mobilizations,Manual Therapy,Neuromuscular Re-education,Patient/Caregiver Education,Self-Care/Home Management,Soft Tissue Mobilization,Therapeutic Activities,Therapeutic Exercises Modalities Cold Pack/Ice Massage,Electric Stimulation,Hot Packs, Infrared Therapy,Traction- Mechanical,Ultrasound Next Visit Focus/Plan Next Note Type Treatment Note Next Visit Plan static/dynamic DL/staggered stance balance (CGA), manual therapy to low back (assess spine vs. muscular), LE exercises: squat taps, toe raises, core, lower trunk rotation Plan of Care Dates Plan of Care Start Date 01/20/25 Plan of Care End Date 03/17/25 Electronically Signed by: Nydia Garner 01/20/25 [id number] If you are in agreement with this Plan of Care, please return a signed and dated copy. I have reviewed this Plan of Care and certify that the skilled therapy services above are required to meet the patient?s needs. Physician Signature Date Printed Name and Credentials Clinical Instructor Signature Printed Name and Credentials
--- NOTE | 2025-01-22 08:20 | PT.OTN ---
Current Diagnoses Dorsalgia, unspecified (01/22/25) Physical Therapy Treatment Note PT-OP-A Visit Information Start: 01/20/25 12:29 Freq: Status: Active Protocol: Document 01/22/25 07:33 SP (Rec: 01/22/25 09:01 SP [id number]) Out-Patient Physical Therapy Visit Information Visit Information Visit Type Treatment Note Visit Note 133/69, HR 68, SaO2 97% on RA Visit Start Time 07:33 Visit Stop Time 08:20 Visit Number 2 Number of HYPERION DEVELOPER Visits 1 PT-OP-B Current Condition Start: 01/20/25 12:29 Freq: Status: Active Protocol: Document 01/20/25 12:30 GG (Rec: 01/20/25 13:44 GG Laptop) Current Condition History of Current Condition Onset Date 30+ years ago Current Complaints back pain w/ occ radiating and balance History of Current Pt reports long hx of back pain and occ sciatic Condition symptoms that can radiate down into the back of the leg 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 Denies numbness/tingling. 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 He also reports difficulty w/ balance and 3 falls within the past year, the most recent fall occurring last month where he turned too fast and caught his feet leading to a fall on carpet. Notes LOB occurs often but he is usually able to catch himself by grabbing onto furniture or counters. The other two falls were in the kitchen and he ended up with bruises on his hips. Notes no significant injury following. He has been sleeping in his recliner and notes that he wakes up every few hours, but not d/t back pain. No changes to bowel/bladder. Has not tried heat/ice/medications for relief. Started going to chiropractor 3 weeks ago and notes that he occ has slight relief, but it is dependent on what they do during the appt. Treatment Goals Patient/Caregiver walk further, ascend/descend stairs easier, vacuum Goals longer, and stand longer w/o pain increasing, improve balance and LE strength PT-OP-C Subjective Start: 01/20/25 12:29 Freq: Status: Active Protocol: Document 01/22/25 07:33 SP (Rec: 01/22/25 09:01 SP [id number]) OP-PT Subjective Patient Comments Patient Comments Pt reports can only do things for short period of time like vacuuming, stand doing dishes/laundry 5-10 min before need to go sit down due to back pain and challenged balance. Pt states sleeps in recliner, hard time getting in/out bed right now. Sees Chiropractor ( neck, back, hips, knees, ankles- what needed for the day) 1 day every 2 weeks and has helped while waiting to get in to see PT and has an appt later today. Chiropractor only does manual, hasn't given ex for home support. PT-OP-D Balance Start: 01/20/25 12:29 Freq: Status: Active Protocol: Document 01/20/25 12:30 GG (Rec: 01/20/25 13:44 GG Laptop) Balance Tests Single Limb Standing Single Limb- Right able to lift leg Single Limb- Left able to lift leg PT-OP-E Functional Tests Start: 01/20/25 12:29 Freq: Status: Active Protocol: Document 01/20/25 12:30 GG (Rec: 01/20/25 13:44 GG Laptop) Functional Tests Dynamic Gait Index (DGI) Score 08/12 PT-OP-G Mobility & Gait Start: 01/20/25 12:29 Freq: Status: Active Protocol: Document 01/20/25 12:30 GG (Rec: 01/20/25 13:44 GG Laptop) OP Gait Assessment Comments Gait Comments R trendelenberg PT-OP-K Range of Motion Start: 01/20/25 12:29 Freq: Status: Active Protocol: Document 01/20/25 12:30 GG (Rec: 01/20/25 13:44 GG Laptop) Lumbar Spine Range of Motion Lumbar Spine Active Percentage Flexion 15 Extension 40 Rotation Left 20 Rotation Right 20 Lateral Flexion Left 25 Lateral Flexion 25 Right Comments minimal lumbar flexion observed; mild fwd flexion w/ SB testing PT-OP-L Special Tests Start: 01/20/25 12:29 Freq: Status: Active Protocol: Document 01/20/25 12:30 GG (Rec: 01/20/25 13:44 GG Laptop) Special Tests Neural Special Tests- Lower Body slump Test Results pos Comments pt noted inc. symptoms into hamstring/calves w/ addition of passive DF PT-OP-M Strength Start: 01/20/25 12:29 Freq: Status: Active Protocol: Document 01/20/25 12:30 GG (Rec: 01/20/25 13:44 GG Laptop) Hip Strength Hip Manual Muscle Testing Right Flexion (L2) 4 Good Abduction 3+ Fair+ External Rotation 4- Good- Internal Rotation 4 Good Left Flexion (L2) 4 Good Abduction 4 Good External Rotation 4 Good Internal Rotation 4 Good Knee Strength Knee Manual Muscle Testing Right Flexion (S2) 4+ Good+ Extension (L3) 4+ Good+ Left Flexion (S2) 4+ Good+ Extension (L3) 4+ Good+ Ankle/Foot Strength Ankle and Foot Manual Muscle Testing Right Dorsiflexion (L4) 4+ Good+ Left Dorsiflexion (L4) 4+ Good+ PT-OP-Q Treatments Start: 01/20/25 12:29 Freq: Status: Active Protocol: Document 01/22/25 07:33 SP (Rec: 01/22/25 09:01 SP [id number]) Cardio Equipment Recumbent Elliptical ([employer]) Duration (Minutes) 10 Resistance 5 Seat Position 10- 718 steps, 0.4 miles Other Nustep, handles 10, BUEs/BLEs, cues for 75 spm Therapeutic Exercises Supine Exercises TA LTR Supine Exercise Name added to HEP with HO (used to perform in his past) Side bilateral Reps/Minutes 5 reps each side Comments cued LS toward table, slow pacing, keep pelvis level on table SKTC Stretch Supine Exercise Name added to HEP with HO Side bilateral Reps/Minutes 30 SH x2 Comments cues for breath allow ribcage and LS mm mobility Standing Exercises Anti-Rotation Standing Exercise paloff press- in PT only Name Side bilateral Resistance Dark Blue #4 TB Reps/Minutes 15 reps each side Comments cued PPT, TA, slow push out/in from navel- little challenge for bal- SBA sit to stand Equipment Used UE support Reps/Minutes 3 reps during tx Comments cued TA coming to stand and hip hinge slow descend- tends to move quickly Other Exercises Self STMs Other Exercise Name tennis vs racquet ball wall: LS ES and gluteal region- added to HEP with HO Side bilateral Equipment Used * racquetball better little more flexible- suggested find at [employer] Reps/Minutes 30 sec total Comments cues for stagger stance, pressure into wall Manual Therapy Treatment Consent Patient gave verbal Yes consent for manual treatment Soft Tissue Mobilization Back, hips Body Location Kel: QL, LS ES & paraspinals, Gluts, TFL Mobilization Type Myofascial Release,Rolling Intensity/Depth Moderate Body Position SL pillows between BLEs/under head Comments gentle STMs, sensitive to pressure, adjusted with feedback; while given ed self STMs use ball wall. Neuro Re-Education Treatment Balance Activities JESS Bal Details 1. Semitandem 2. Tandem 3. HEP: Corner bal teach for home NBOS HTs and EC Equipment near TM rail Comments 1. L ft fwd 60 sec, R ft fwd 32 sec before contact rail recover 2. L ft fwd 7 sec, R ft fwd 3 sec 3. NBOS: HTs and EC up to 7 sec before LOB contact chair Cued elongate posture, Rhomboid and TA fac midline support improved Self-Care/Home Management Treatment Education Patient Education Body Mechanics,Home Exercise Program,Joint Protection, Pain Management,Posture,Safety Other Education Short time spent use pillows under knees sleeping in recliner and eventually SL in bed when returns pillows between knees for spinal support. Cues for PPT and TA during trial standing antirotation ex in PT only, little unsteady (occ SBA-CGA) and LB recruitment 1-3/10 tolerated so will only continue in PT. Instruction low back and spinal rotation with HOs to decrease muscular tension and promote mobility. PT-OP-T Assessment and Plan Start: 01/20/25 12:29 Freq: Status: Active Protocol: Document 01/22/25 07:33 SP (Rec: 01/22/25 09:01 SP [id number]) Physical Therapy Assessment Goals balance Short Term Goal (STG Pt will be able to SLS for at least 2 sec unassisted to ) demonstrated improved balance for decreased fall risk. STG Duration 02/20/25 Jail Goal (LTG) Pt will be able to SLS for at least 5 sec unassisted to demonstrated improved balance for decreased fall risk. LTG Duration 03/17/25 strength Short Term Goal (STG Pt will be able to walk >.25 mile before requiring rest ) d/t symptoms to show improved tolerance to upright activities. STG Duration 02/20/25 Jail Goal (LTG) Pt will score at least a 4+/5 on tested BLE MMTs for improved strength and ability to perform ADLs. LTG Duration 03/17/25 DGI Impairment 1224 Short Term Goal (STG Pt will score at least a 15 on DGI to show improved ) balance during ambulation. STG Duration 02/20/25 Jail Goal (LTG) Pt will score at least a 19 on DGI to show improved balance during ambulation. LTG Duration 03/17/25 AFR[place] Impairment 38% Short Term Goal (STG Pt will score at least a 20% on A[place] to show improved ) function and ability to perform ADLs w/o interference from pain. STG Duration 02/20/25 Jail Goal (LTG) Pt will score at least a 15% on AFR[place] to show improved function and ability to perform ADLs w/o interference from pain. LTG Duration 03/17/25 Assessment Summary Assessment Pt sensitive to pressure during manual, adjusted for comfort while gave ed and return demo use ball wall self carryover. Pt reports the ball does help lessen tension in LB. Initiated stretching/flexibility this tx to support self decreased LBP and mobility with good response to SKTC, LTR, Open book and STMs ball/wall. Trialed antirotation paloff press this tx for core progression, reports 1-2/10 in LB, cues for PPT and TA engagement with improvement but is little challenge initially finding stance position, will assess this again future tx, not to be performed at home at this time. Physical Therapy Plan Frequency and Duration Frequency of 2x/Week Treatment Duration of 8 treatment (weeks) Plan of Care Start 01/20/25 Date Plan of Care End 03/17/25 Date Therapeutic Interventions Therapeutic Balance Training,Coordination Training,Gait Training, Interventions Home Exercise Program,Joint Mobilizations,Manual Therapy,Neuromuscular Re-education,Patient/Caregiver Education,Self-Care/Home Management,Soft Tissue Mobilization,Therapeutic Activities,Therapeutic Exercises Modalities Cold Pack/Ice Massage,Electric Stimulation,Hot Packs, Infrared Therapy,Traction- Mechanical,Ultrasound Next Visit Focus/Plan Next Note Type Treatment Note Next Visit Plan Add TA education and sit<>supine Ther Act to allow him to return to sleeping in bed. Recheck response to manual last tx, corner bal, ball wall self STMs instruction and supine stretching/AROM HEP. PT POC: static/dynamic DL/staggered stance balance (CGA ), manual therapy to low back (assess spine vs. muscular), LE exercises: Add: squat taps, toe raises, core, continue lower trunk rotation.
--- NOTE | 2025-02-03 08:04 | PT-OP ANOTE ---
Pt cancelled his 2nd consecutive appt >24 hrs advance as directed, no reason given. FAST FOOD DELIVERY DRIVER left message inquiring reasoning cancelled appts and hope can help in any way [facility]. Reminded next appt with FAST FOOD DELIVERY DRIVER 02/06/25 at 815 with FAST FOOD DELIVERY DRIVER and 02/09/25 with PT for 30 day PN needed. Pt has only attended 1 appt 01/22 besides eval on 01/20, discussed in home voicemail importance of attendance for progression and can call back to reschedule today's cancelled appt to support him, allowed written in POC appts 2 days per week.
--- NOTE | 2025-02-12 12:27 | PT.OPDS ---
Current Diagnoses Dorsalgia, unspecified (01/22/25) Visit Care Team Role Provider Type Tobi Lora MD Attending Provider Physician Family Provider Primary Care Provider Referring Provider Specialty: Family Practice Address: [address] [place] [address], [address], [place], [address] Email: [email or web address] Visit Number Visit Number 2 Discharge Summary PT-OP-B Current Condition Start: 01/20/25 12:29 Freq: Status: Active Protocol: Document 01/20/25 12:30 GG (Rec: 01/20/25 13:44 GG Laptop) Current Condition History of Current Condition Onset Date 30+ years ago Current Complaints back pain w/ occ radiating and balance History of Current Pt reports long hx of back pain and occ sciatic Condition symptoms that can radiate down into the back of the leg 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 Denies numbness/tingling. 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 He also reports difficulty w/ balance and 3 falls within the past year, the most recent fall occurring last month where he turned too fast and caught his feet leading to a fall on carpet. Notes LOB occurs often but he is usually able to catch himself by grabbing onto furniture or counters. The other two falls were in the kitchen and he ended up with bruises on his hips. Notes no significant injury following. He has been sleeping in his recliner and notes that he wakes up every few hours, but not d/t back pain. No changes to bowel/bladder. Has not tried heat/ice/medications for relief. Started going to chiropractor 3 weeks ago and notes that he occ has slight relief, but it is dependent on what they do during the appt. Treatment Goals Patient/Caregiver walk further, ascend/descend stairs easier, vacuum Goals longer, and stand longer w/o pain increasing, improve balance and LE strength PT-OP-C Subjective Start: 01/20/25 12:29 Freq: Status: Active Protocol: Document 01/22/25 07:33 SP (Rec: 01/22/25 09:01 SP [id number]) OP-PT Subjective Patient Comments Patient Comments Pt reports can only do things for short period of time like vacuuming, stand doing dishes/laundry 5-10 min before need to go sit down due to back pain and challenged balance. Pt states sleeps in recliner, hard time getting in/out bed right now. Sees Chiropractor ( neck, back, hips, knees, ankles- what needed for the day) 1 day every 2 weeks and has helped while waiting to get in to see PT and has an appt later today. Chiropractor only does manual, hasn't given ex for home support. PT-OP-D Balance Start: 01/20/25 12:29 Freq: Status: Active Protocol: Document 01/20/25 12:30 GG (Rec: 01/20/25 13:44 GG Laptop) Balance Tests Single Limb Standing Single Limb- Right able to lift leg Single Limb- Left able to lift leg PT-OP-E Functional Tests Start: 01/20/25 12:29 Freq: Status: Active Protocol: Document 01/20/25 12:30 GG (Rec: 01/20/25 13:44 GG Laptop) Functional Tests Dynamic Gait Index (DGI) Score 08/12 PT-OP-G Mobility & Gait Start: 01/20/25 12:29 Freq: Status: Active Protocol: Document 01/20/25 12:30 GG (Rec: 01/20/25 13:44 GG Laptop) OP Gait Assessment Comments Gait Comments R trendelenberg PT-OP-K Range of Motion Start: 01/20/25 12:29 Freq: Status: Active Protocol: Document 01/20/25 12:30 GG (Rec: 01/20/25 13:44 GG Laptop) Lumbar Spine Range of Motion Lumbar Spine Active Percentage Flexion 15 Extension 40 Rotation Left 20 Rotation Right 20 Lateral Flexion Left 25 Lateral Flexion 25 Right Comments minimal lumbar flexion observed; mild fwd flexion w/ SB testing PT-OP-L Special Tests Start: 01/20/25 12:29 Freq: Status: Active Protocol: Document 01/20/25 12:30 GG (Rec: 01/20/25 13:44 GG Laptop) Special Tests Neural Special Tests- Lower Body slump Test Results pos Comments pt noted inc. symptoms into hamstring/calves w/ addition of passive DF PT-OP-M Strength Start: 01/20/25 12:29 Freq: Status: Active Protocol: Document 01/20/25 12:30 GG (Rec: 01/20/25 13:44 GG Laptop) Hip Strength Hip Manual Muscle Testing Right Flexion (L2) 4 Good Abduction 3+ Fair+ External Rotation 4- Good- Internal Rotation 4 Good Left Flexion (L2) 4 Good Abduction 4 Good External Rotation 4 Good Internal Rotation 4 Good Knee Strength Knee Manual Muscle Testing Right Flexion (S2) 4+ Good+ Extension (L3) 4+ Good+ Left Flexion (S2) 4+ Good+ Extension (L3) 4+ Good+ Ankle/Foot Strength Ankle and Foot Manual Muscle Testing Right Dorsiflexion (L4) 4+ Good+ Left Dorsiflexion (L4) 4+ Good+ PT-OP-T Assessment and Plan Start: 01/20/25 12:29 Freq: Status: Active Protocol: Document 02/12/25 12:19 [facility] (Rec: 02/12/25 12:27 [facility] [id number]) Physical Therapy Assessment Goals balance Short Term Goal (STG Pt will be able to SLS for at least 2 sec unassisted to ) demonstrated improved balance for decreased fall risk. STG Duration 02/20/25 Custodial Goal (LTG) Pt will be able to SLS for at least 5 sec unassisted to demonstrated improved balance for decreased fall risk. LTG Duration 03/17/25 strength Short Term Goal (STG Pt will be able to walk >.25 mile before requiring rest ) d/t symptoms to show improved tolerance to upright activities. STG Duration 02/20/25 Custodial Goal (LTG) Pt will score at least a 4+/5 on tested BLE MMTs for improved strength and ability to perform ADLs. LTG Duration 03/17/25 DGI Impairment 08/12 Short Term Goal (STG Pt will score at least a 15 on DGI to show improved ) balance during ambulation. STG Duration 02/20/25 Custodial Goal (LTG) Pt will score at least a 19 on DGI to show improved balance during ambulation. LTG Duration 03/17/25 [place] Impairment 38% Short Term Goal (STG Pt will score at least a 20% on [place] to show improved ) function and ability to perform ADLs w/o interference from pain. STG Duration 02/20/25 Senior Maintenance Mechanic Goal (LTG) Pt will score at least a 15% on A[place] to show improved function and ability to perform ADLs w/o interference from pain. LTG Duration 03/17/25 Assessment Summary Assessment Pt cancelled all appointments. He was called and said he had pain after sessions and his pain he came in for is now gone so does not want to do PT Physical Therapy Plan Discharge Physical Therapy Discharge Reasons Patient Request
== END 2025-02-13 10:48 | disposition home or self-care (01) ==
LOC: PHYS 07:30
PROVIDERS: Family Provider Family Medicine; PCP Family Medicine; Referring Provider Family Medicine; Visit Provider Family Medicine
DX: M54.9 Dorsalgia, unspecified (principal)
CPT/HCPCS: 97110; 97112; 97140; 97162